=== PATIENT | female | born 1945 | race African-American/Black ===

== ENCOUNTER → 2019-02-17 | Day surgery (SDC) | payer OTHER ==
[~2019-02-17] MED LIST: IOHEXOL 180 MG/1 ML ML IJ ONE; LIDOCAINE HCL 1%, 10 MG/ML (20ML VIAL) NR ONE; LIDOCAINE HCL 1%, 10 MG/ML (20ML VIAL) ONE; LIDOCAINE HCL 2% (20ML MULTI-DOSE VIAL) NR ONE; MIDAZOLAM HCL 2 MG/2 ML SINGLE DOSE VIAL ONE; methylPREDNISolone ACET (DEPO) 40 MG/1 ML VIAL NR ONE; methylPREDNISolone ACET (DEPO) 40 MG/1 ML VIAL ONE
[2019-02-17 09:58] VITALS: BMI 46.0
--- NOTE | 2019-02-17 11:47 | DS ---
Discharge Summary Problems reviewed: Yes Reason For Visit: LUMBAR DISC DISPLACEMENT - Instructions Diet, Activity, Other Instructions: Resume regular diet as tolerated. Disposition: HOME - Home Medications Comprehensive Discharge Medication List: Ambulatory Orders Aspirin [ASA -] 81 mg PO DAILY 02/17/19 Glimepiride 1 mg PO DAILY 02/17/19 Hydrocodone/Acetaminophen [Hydrocodon-Acetaminoph 7.5-325] 1 each PO BID Lisinopril 20 mg PO DAILY 02/17/19 Metformin HCl [Metformin HCl ER] 1,000 mg PO BID 02/17/19
[2019-02-21 10:44] VITALS: TEMP 98
[2019-02-21 10:56] VITALS: BP 126/59; PULSE 55
== END | disposition home or self-care (01) ==
LOC: JASU-SURG 08:35
PROVIDERS: ATTEND Anesthesiology
PROC: 3E0R33Z Introduction of Anti-inflammatory into Spinal Canal, Percutaneous Approach (ICD-10-PCS; 2019-02-17)
PROC: 3E0R3BZ Introduction of Anesthetic Agent into Spinal Canal, Percutaneous Approach (ICD-10-PCS; principal; 2019-02-17 10:48)
DX: M54.17 Radiculopathy, lumbosacral region (principal); M51.26 Other intervertebral disc displacement, lumbar region; M51.37 Other intervertebral disc degeneration, lumbosacral region; E11.9 Type 2 diabetes mellitus without complications; Z79.84 Long term (current) use of oral hypoglycemic drugs; I10 Essential (primary) hypertension
CPT/HCPCS: 76000-TC-FY